=== PATIENT | male | born 1960 | race African-American/Black ===

== ENCOUNTER 2023-03-24 16:52 | Inpatient (IN) ==
[2023-03-24 18:50] LABS: Hematocrit 37.5 % (38-53); Hemoglobin 12.7 g/dL (13.2-16.3); Mean Corpuscular Hemoglobin 28.8 pg (27-33); Mean Corpuscular Hgb Conc 33.8 g/dL (31-36); Mean Corpuscular Volume 85.2 fL (80-97); Mean Platelet Volume 6.7 fL (7.5-11.2); Platelet Count 500 10^3/uL (150-450); White Blood Count 24.6 10^3/uL (3.6-10.2)
[2023-03-24 19:07] LABS: Albumin 2.5 g/dL (3.2-5.2); Albumin/Globulin Ratio 0.5 (1-3); C Reactive Protein 155.47 mg/L (<8.01); Creatinine, Serum 0.94 mg/dL (0.67-1.17); Globulin 4.9 g/dL (2-4); Total Bilirubin 1.3 mg/dL (0.2-1.0); Total Protein 7.4 g/dL (6.4-8.9); eGFR CKD-EPI 90.5 (>60)
[2023-03-24] MEDS: Vancomycin 1,000 MG in NS 0.9% 250 ml 250 ML IVPB ONE (19:12)
[2023-03-24 19:31] LABS: RBC Morphology Normal (Normal)
[2023-03-24 19:32] LABS: ABS Basophils 0.1 10^3/uL (0.0-0.1); ABS Lymphocytes 0.7 10^3/uL (1.0-4.8); ABS Monocytes 0.9 10^3/uL (0.0-1.1); ABS Neutrophils 22.9 10^3/uL (1.5-7.6); ABS Nucleated RBC 0.12 10^3/ul; Eosinophil % 0.2 %; Lymphocyte % 2.8 %; Nucleated Red Blood Cells % 0.5 %/100WBC (0.0-0.8)
[2023-03-24] MEDS ORDERED: Polyethylene Glycol 3350 17 GM PACKET PO PRN (20:43)
[2023-03-24] MEDS ORDERED: Senna TAB 8.6 mg TAB PO PRN (20:43)
[2023-03-24] MEDS ORDERED: Ondansetron 4 mg VIAL 2 MG/ML 2 ml VIAL IV PRN (20:43)
[2023-03-24 21:14] LABS: Urine Appearance Turbid; Urine Bilirubin Negative (Negative); Urine Blood 2+ (Negative); Urine Color Yellow; Urine Glucose Negative (Negative); Urine Ketones Negative (Negative); Urine Nitrite Negative (Negative); Urine Protein 2+(100 mg/dL) (Negative); Urine Urobilinogen Positive (Negative)
[2023-03-24 21:20] LABS: Urine Bacteria Absent (Absent); Urine Red Blood Cell 3+(>10/hpf) (Absent); Urine White Blood Cell 3+(>20/hpf) (Absent)
[2023-03-24 21:22] LABS: Direct Bilirubin 0.5 mg/dL (0.03-0.18); Indirect Bilirubin 0.8 mg/dL (0.3-1.0)
[2023-03-24] MEDS ORDERED: Vancomycin per Pharmacy 1 EA NOTE FOLLOW UP SCH (23:00)
[2023-03-24] MEDS: Lactated Ringers 1000 ml BAG 1,000 ML IV ONE (23:02)
[2023-03-24] MEDS: Cefepime 2 GM in Dextrose 2 GM/50 ML BAG IV SCH (23:05)
[2023-03-24] MEDS: Enoxaparin 40 MG/0.4 ML SYR SUBCUT SCH (23:07)
[2023-03-24] MEDS: Potassium Chlor 20 meq TAB.ER PO ONE (23:59)
[2023-03-25] MEDS: Lactated Ringers 1000 ml BAG 1,000 ML IV ONE (01:25)
[2023-03-25] MEDS: KCL 20 MEQ/100 ML IVPREMIX 20 MEQ/100 ML BAG IV SCH ×2 (01:26→11:26)
[2023-03-25] MEDS: Ammonium Lactate 12% 1 APPLIC TUBE TOPICAL SCH (03:48)
[2023-03-25 05:50] LABS: Hematocrit 37.6 % (38-53); Hemoglobin 12.5 g/dL (13.2-16.3); Mean Corpuscular Hemoglobin 28.3 pg (27-33); Mean Corpuscular Hgb Conc 33.3 g/dL (31-36); Mean Platelet Volume 6.6 fL (7.5-11.2); Platelet Count 510 10^3/uL (150-450); Red Blood Count 4.43 10^6/uL (4.06-5.63); Red Cell Distribution Width 14.3 % (12-17); White Blood Count 22.8 10^3/uL (3.6-10.2)
[2023-03-25 05:51] LABS: ABS Basophils 0.1 10^3/uL (0.0-0.1); ABS Eosinophils 0.1 10^3/uL (0.0-0.5); ABS Monocytes 0.7 10^3/uL (0.0-1.1); ABS Neutrophils 20.8 10^3/uL (1.5-7.6); ABS Nucleated RBC 0.04 10^3/ul; Eosinophil % 0.5 %; Lymphocyte % 4.6 %; Nucleated Red Blood Cells % 0.2 %/100WBC (0.0-0.8)
[2023-03-25] MEDS: Vancomycin 1000 MG in NS 0.9% 250 ML IVPB SCH ×2 (05:59→23:38)
[2023-03-25 06:07] LABS: Calcium 7.8 mg/dL (8.6-10.3); Creatinine, Serum 0.98 mg/dL (0.67-1.17); Potassium 3.2 mmol/L (3.5-5.0); eGFR CKD-EPI 86.1 (>60)
[2023-03-25] MEDS: Iohexol 350 (CONTRAST) 500 ML MDV IV ONE (07:23)
[2023-03-25] MEDS: Lactated Ringers 1000 ml BAG 1,000 ML IV SCH ×2 (16:35→18:27)
[2023-03-25] MEDS: Enoxaparin 40 MG/0.4 ML SYR SUBCUT ONE (16:36)
[2023-03-25] MEDS: Cefepime 2 GM in Dextrose 2 GM/50 ML BAG IV SCH (22:56)
[2023-03-26 06:30] LABS: ABS Basophils 0.1 10^3/uL (0.0-0.1); ABS Eosinophils 0.1 10^3/uL (0.0-0.5); ABS Lymphocytes 1.2 10^3/uL (1.0-4.8); ABS Monocytes 0.7 10^3/uL (0.0-1.1); ABS Neutrophils 15.9 10^3/uL (1.5-7.6); Eosinophil % 0.8 %; Hematocrit 35.2 % (38-53); Hemoglobin 11.8 g/dL (13.2-16.3); Lymphocyte % 6.7 %; Mean Corpuscular Hemoglobin 28.3 pg (27-33); Mean Corpuscular Hgb Conc 33.5 g/dL (31-36); Mean Corpuscular Volume 84.3 fL (80-97); Mean Platelet Volume 6.7 fL (7.5-11.2); Platelet Count 468 10^3/uL (150-450); Red Blood Count 4.17 10^6/uL (4.06-5.63); Red Cell Distribution Width 14.4 % (12-17); White Blood Count 18.1 10^3/uL (3.6-10.2)
[2023-03-26 07:50] LABS: Calcium 7.6 mg/dL (8.6-10.3); Creatinine, Serum 0.85 mg/dL (0.67-1.17); Magnesium 1.8 mg/dL (1.9-2.7); Phosphorus 2.1 mg/dL (2.5-5.0); Potassium 3.5 mmol/L (3.5-5.0)
[2023-03-26] MEDS ORDERED: Midazolam 2 mg/2 ml VIAL 1 mg/ml 2 ml VIAL (2 mg) ONE (11:59)
[2023-03-26] MEDS ORDERED: Lidocaine 2% PF 5 ML VIAL ONE (11:59)
[2023-03-26] MEDS ORDERED: Propofol 10 MG/ML 20 ML BTL ONE (11:59)
[2023-03-26] MEDS ORDERED: fentaNYL 250 mcg/5 ml 50 MCG/ML 5 ml VIAL (250 MCG) ONE (11:59)
[2023-03-26] MEDS ORDERED: Vancomycin Trough Check NOTE FOLLOW UP ONE (12:30)
[2023-03-26] MEDS ORDERED: Rocuronium 50 mg VIAL 10 mg/ml 5 ml VIAL (50 mg) ONE (12:43)
[2023-03-26] MEDS ORDERED: Lidocaine 2% (CARDIAC or IV) 20 MG/ML 5 ML SYRINGE (100 MG) ONE (12:47)
[2023-03-26] MEDS ORDERED: Bupivacaine 0.5% SDV PF 30ML VIAL ONE (12:47)
[2023-03-26] MEDS ORDERED: Acetaminophen IV 1 GM/100ML 1,000 MG/100 ML BAG IV ONE (13:52)
[2023-03-26] MEDS ORDERED: Sugammadex 500 MG/5 ML 5 ml VIAL IV PUSH ONE (14:01)
[2023-03-26] MEDS: Buffered Lidocaine 1% SYRIN 1 ml INTRADERM ONE (16:05)
[2023-03-26] MEDS: Cefepime 2 GM in Dextrose 2 GM/50 ML BAG IV SCH (16:31)
[2023-03-26] MEDS: Enoxaparin 40 MG/0.4 ML SYR SUBCUT SCH (16:32)
[2023-03-26 17:00] LABS: Creatinine, Serum 0.83 mg/dL (0.67-1.17); eGFR CKD-EPI 97.7 (>60)
[2023-03-26 17:19] LABS: Vancomycin Trough 10.1 mcg/mL
[2023-03-26] MEDS: Vancomycin 1,250 MG in NS 0.9% 250 ml 250 ML IVPB SCH (22:01)
[2023-03-27 06:08] LABS: ABS Basophils 0.1 10^3/uL (0.0-0.1); ABS Eosinophils 0.1 10^3/uL (0.0-0.5); ABS Lymphocytes 1.1 10^3/uL (1.0-4.8); ABS Monocytes 0.8 10^3/uL (0.0-1.1); ABS Neutrophils 13.5 10^3/uL (1.5-7.6); Eosinophil % 0.8 %; Hematocrit 33.8 % (38-53); Hemoglobin 11.4 g/dL (13.2-16.3); Lymphocyte % 7.3 %; Mean Corpuscular Hemoglobin 28.5 pg (27-33); Mean Corpuscular Hgb Conc 33.6 g/dL (31-36); Mean Corpuscular Volume 84.9 fL (80-97); Mean Platelet Volume 6.7 fL (7.5-11.2); Platelet Count 459 10^3/uL (150-450); Red Blood Count 3.98 10^6/uL (4.06-5.63); Red Cell Distribution Width 14.4 % (12-17); White Blood Count 15.6 10^3/uL (3.6-10.2)
[2023-03-27 06:26] LABS: Calcium 7.3 mg/dL (8.6-10.3); Creatinine, Serum 0.97 mg/dL (0.67-1.17); Magnesium 1.7 mg/dL (1.9-2.7); Potassium 3.4 mmol/L (3.5-5.0); eGFR CKD-EPI 87.2 (>60)
[2023-03-27] MEDS ORDERED: Potassium Chloride IV 40 MEQ in Lactated Ringers 1000 ml BAG 1,000 ML IVPB SCH (08:00)
[2023-03-27] MEDS: Magnesium Sulf 4 GM/100 ML IV 4,000 MG/100 ML BAG IVPB ONE (10:35)
[2023-03-27] MEDS: Potassium Chloride IV 40 MEQ in Lactated Ringers 1000 ml BAG 1,000 ML IVPB SCH (11:34)
[2023-03-27] MEDS: Lactated Ringers 1000 ml BAG 500 ML IV ONE (15:06)
[2023-03-27 15:21] LABS: INR 1.27 (0.83-1.13)
[2023-03-28] MEDS ORDERED: Senna TAB 8.6 mg TAB PO PRN (07:19)
[2023-03-28] MEDS: Vancomycin Trough Check NOTE FOLLOW UP ONE (07:32)
[2023-03-28] MEDS: Senna TAB 8.6 mg TAB PO SCH (21:25)
[2023-03-29 09:44] LABS: ABS Basophils 0.1 10^3/uL (0.0-0.1); ABS Eosinophils 0.2 10^3/uL (0.0-0.5); ABS Lymphocytes 1.1 10^3/uL (1.0-4.8); ABS Monocytes 0.9 10^3/uL (0.0-1.1); ABS Neutrophils 10.9 10^3/uL (1.5-7.6); ABS Nucleated RBC 0.01 10^3/ul; Eosinophil % 1.3 %; Hematocrit 33.1 % (38-53); Hemoglobin 11.3 g/dL (13.2-16.3); Lymphocyte % 8.6 %; Mean Corpuscular Hemoglobin 29.1 pg (27-33); Mean Corpuscular Hgb Conc 34.2 g/dL (31-36); Mean Platelet Volume 6.3 fL (7.5-11.2); Nucleated Red Blood Cells % 0.1 %/100WBC (0.0-0.8); Platelet Count 480 10^3/uL (150-450); Red Cell Distribution Width 14.5 % (12-17); White Blood Count 13.2 10^3/uL (3.6-10.2)
[2023-03-29 09:59] LABS: Calcium 7.9 mg/dL (8.6-10.3); Creatinine, Serum 0.82 mg/dL (0.67-1.17); Potassium 3.4 mmol/L (3.5-5.0); eGFR CKD-EPI 98.1 (>60)
[2023-03-29] MEDS: Potassium Chlor 20 meq TAB.ER PO ONE (10:55)
[2023-03-30 06:19] LABS: Hematocrit 29.4 % (38-53); Hemoglobin 10.1 g/dL (13.2-16.3); Mean Corpuscular Hemoglobin 28.9 pg (27-33); Mean Corpuscular Hgb Conc 34.2 g/dL (31-36); Mean Corpuscular Volume 84.4 fL (80-97); Mean Platelet Volume 6.3 fL (7.5-11.2); Platelet Count 447 10^3/uL (150-450); Red Blood Count 3.48 10^6/uL (4.06-5.63); Red Cell Distribution Width 14.4 % (12-17); White Blood Count 10.5 10^3/uL (3.6-10.2)
[2023-03-30 06:35] LABS: Calcium 7.6 mg/dL (8.6-10.3); Creatinine, Serum 0.85 mg/dL (0.67-1.17); Magnesium 1.9 mg/dL (1.9-2.7); Potassium 3.5 mmol/L (3.5-5.0); eGFR CKD-EPI 96.4 (>60)
[2023-03-30] MEDS: Potassium Chlor 20 meq TAB.ER PO ONE (10:32)
[2023-03-30] MEDS: Vancomycin Trough Check NOTE FOLLOW UP ONE (10:35)
[2023-03-30] MEDS: Magnesium Sulfate IV 1GM/100ML 1 GM/100 ML BAG IV ONE (10:36)
[2023-03-30] MEDS: Vancomycin 1000 MG in NS 0.9% 250 ML IVPB SCH (11:43)
[2023-03-30] MEDS: Potassium Chloride LIQUID 20 MEQ/15 ML LIQUID PO ONE (11:50)
[2023-03-30] MEDS: cefTRIAXone 2 gm/50 mL D5W 2 GM/50 ML BAG IV SCH (14:40)
[2023-03-31 06:10] LABS: Hematocrit 31.9 % (38-53); Hemoglobin 10.7 g/dL (13.2-16.3); Mean Corpuscular Hemoglobin 28.5 pg (27-33); Mean Corpuscular Hgb Conc 33.7 g/dL (31-36); Mean Corpuscular Volume 84.6 fL (80-97); Mean Platelet Volume 6.4 fL (7.5-11.2); Platelet Count 475 10^3/uL (150-450); Red Blood Count 3.77 10^6/uL (4.06-5.63); Red Cell Distribution Width 14.6 % (12-17); White Blood Count 9.9 10^3/uL (3.6-10.2)
[2023-03-31 06:27] LABS: Calcium 7.8 mg/dL (8.6-10.3); Creatinine, Serum 0.85 mg/dL (0.67-1.17); Potassium 3.5 mmol/L (3.5-5.0); eGFR CKD-EPI 96.4 (>60)
[2023-03-31] MEDS: KCL 20 MEQ/100 ML IVPREMIX 20 MEQ/100 ML BAG IV SCH (09:07)
[2023-03-31 12:17] LABS: Creatinine, Serum 0.85 mg/dL (0.67-1.17); eGFR CKD-EPI 96.4 (>60)
[2023-03-31 12:30] LABS: Vancomycin Trough 16.8 mcg/mL
[2023-03-31] MEDS: Vancomycin Trough Check NOTE FOLLOW UP ONE (12:41)
[2023-03-31] MEDS: Amoxicillin/Clavul 500/125 TAB (Augmentin 500 mg tab) PO SCH (13:25)
[2023-03-31 14:04] LABS: Osmolality Serum 305 mOsm/kg (275-295)
[2023-04-01 10:03] LABS: Hemoglobin 11.3 g/dL (13.2-16.3); Mean Corpuscular Hemoglobin 28.2 pg (27-33); Mean Corpuscular Hgb Conc 33.3 g/dL (31-36); Mean Corpuscular Volume 84.7 fL (80-97); Mean Platelet Volume 6.3 fL (7.5-11.2); Platelet Count 480 10^3/uL (150-450); Red Blood Count 4.02 10^6/uL (4.06-5.63); Red Cell Distribution Width 14.6 % (12-17); White Blood Count 11.9 10^3/uL (3.6-10.2)
[2023-04-01 10:56] LABS: Creatinine, Serum 0.86 mg/dL (0.67-1.17); Magnesium 1.9 mg/dL (1.9-2.7); Phosphorus 2.7 mg/dL (2.5-5.0); Potassium 4.1 mmol/L (3.5-5.0); eGFR CKD-EPI 96.1 (>60)
[2023-04-01] MEDS ORDERED: Lorazepam PYXIS KEY PRN (11:13)
[2023-04-01] MEDS: LORazepam 2 mg VIAL 1 ml IV PUSH ONE (11:30)
[2023-04-01 18:59] LABS: Urine Appearance Cloudy; Urine Bilirubin Negative (Negative); Urine Blood 2+ (Negative); Urine Color Yellow; Urine Glucose Negative (Negative); Urine Ketones Negative (Negative); Urine Nitrite Negative (Negative); Urine Protein 1+(30 mg/dL) (Negative); Urine Specific Gravity 1.013 (1.002-1.030); Urine Urobilinogen Negative (Negative)
[2023-04-01 19:13] LABS: Urine Bacteria Absent (Absent); Urine Red Blood Cell 3+(>10/hpf) (Absent); Urine Squamous Epithelial Cell Present (Absent); Urine White Blood Cell 3+(>20/hpf) (Absent)
[2023-04-03 06:43] LABS: ABS Basophils 0.1 10^3/uL (0.0-0.1); ABS Eosinophils 0.3 10^3/uL (0.0-0.5); ABS Lymphocytes 1.3 10^3/uL (1.0-4.8); ABS Monocytes 0.8 10^3/uL (0.0-1.1); ABS Neutrophils 5.7 10^3/uL (1.5-7.6); Eosinophil % 3.6 %; Hematocrit 31.2 % (38-53); Hemoglobin 10.6 g/dL (13.2-16.3); Lymphocyte % 15.6 %; Mean Corpuscular Hemoglobin 28.9 pg (27-33); Mean Corpuscular Hgb Conc 34.1 g/dL (31-36); Mean Corpuscular Volume 84.7 fL (80-97); Mean Platelet Volume 6.2 fL (7.5-11.2); Platelet Count 480 10^3/uL (150-450); Red Blood Count 3.68 10^6/uL (4.06-5.63); Red Cell Distribution Width 14.5 % (12-17); White Blood Count 8.1 10^3/uL (3.6-10.2)
[2023-04-03 06:50] LABS: Calcium 7.6 mg/dL (8.6-10.3); Creatinine, Serum 0.79 mg/dL (0.67-1.17); Magnesium 1.9 mg/dL (1.9-2.7); Potassium 3.8 mmol/L (3.5-5.0); eGFR CKD-EPI 98.6 (>60)
[2023-04-03] MEDS ORDERED: LORazepam 2 mg VIAL 1 ml IV PUSH PRN (08:41)
[2023-04-03] MEDS ORDERED: Lorazepam PYXIS KEY PRN (08:41)
[2023-04-03 10:33] VITALS: BP 111/54
[2023-04-03 11:37] LABS: Creatinine, Serum 0.8 mg/dL (0.67-1.17); Vancomycin Trough 22.5 mcg/mL; eGFR CKD-EPI 98.2 (>60)
[2023-04-03] MEDS: Vancomycin Trough Check NOTE FOLLOW UP ONE (11:48)
[2023-04-03 17:05] LABS: C Reactive Protein 116.89 mg/L (<8.01)
[2023-04-03] MEDS ORDERED: Vancomycin Random Level NOTE FOLLOW UP ONE (17:30)
[2023-04-03] MEDS ORDERED: Vancomycin 1,250 MG in NS 0.9% 250 ml 250 ML IVPB SCH (18:00)
[2023-04-05] MEDS ORDERED: Vancomycin Trough Check NOTE FOLLOW UP ONE (05:30)
== END 2023-04-03 14:40 | DRG 464 ==
LOC: ED 16:52 → EDHOLD 20:43 → SUATTDRO 20:43 → MED 03-25 13:42
PROVIDERS: ADMIT Internal Medicine; ATTEND Student in an Organized Health Care Education/Training Program

== ENCOUNTER 2023-09-24 17:02 | Inpatient (IN) ==
[2023-09-24] MEDS ORDERED: Dextrose 50% Syringe 50 ml 25 GM/50 ML SYRINGE ONE (17:13)
[2023-09-24] MEDS: Cefepime 2 GM in Dextrose 2 GM/50 ML BAG IV ONE (17:42)
[2023-09-24] MEDS: Acetaminophen IV 1 GM/100ML 1,000 MG/100 ML BAG IV ONE (17:42)
[2023-09-24] MEDS: Dextrose 50% Syringe 50 ml 25 GM/50 ML SYRINGE IV PUSH ONE (17:42)
[2023-09-24] MEDS: Lactated Ringers 1000 ml BAG 1,000 ML IV ONE ×2 (17:43→19:28)
[2023-09-24 17:44] LABS: ABS Lymphocytes 0.3 10^3/uL (1.0-4.8); ABS Monocytes 0.2 10^3/uL (0.0-1.1); ABS Neutrophils 9.6 10^3/uL (1.5-7.6); ABS Nucleated RBC 0.01 10^3/ul; Eosinophil % 0.3 %; Hematocrit 42.1 % (38-53); Hemoglobin 13.9 g/dL (13.2-16.3); Lymphocyte % 2.5 %; Mean Corpuscular Hemoglobin 28.3 pg (27-33); Mean Corpuscular Hgb Conc 33.1 g/dL (31-36); Mean Corpuscular Volume 85.5 fL (80-97); Mean Platelet Volume 6.9 fL (7.5-11.2); Nucleated Red Blood Cells % 0.1 %/100WBC (0.0-0.8); Platelet Count 307 10^3/uL (150-450); Red Blood Count 4.93 10^6/uL (4.06-5.63); White Blood Count 10.1 10^3/uL (3.6-10.2)
[2023-09-24 17:59] LABS: Activated Partial Thrombo Time 33.3 seconds (26.0-38.0); INR 1.1 (0.83-1.13)
[2023-09-24 18:19] LABS: Albumin 3.8 g/dL (3.2-5.2); Albumin/Globulin Ratio 1.1 (1-3); C Reactive Protein 21.13 mg/L (<8.01); Calcium 9.4 mg/dL (8.6-10.3); Creatinine, Serum 1.11 mg/dL (0.67-1.17); Globulin 3.4 g/dL (2-4); Potassium 3.4 mmol/L (3.5-5.0); Total Bilirubin 1.5 mg/dL (0.2-1.0); Total Protein 7.2 g/dL (6.4-8.9); eGFR CKD-EPI 73.7 (>60)
[2023-09-24] MEDS: Vancomycin 1,250 MG in NS 0.9% 250 ml 250 ML IVPB ONE (18:36)
[2023-09-24 18:56] LABS: Urine Appearance Extra Turbid; Urine Bilirubin Negative (Negative); Urine Blood 1+ (Negative); Urine Glucose 3+ (>=300 mg/dL) (Negative); Urine Ketones Negative (Negative); Urine Nitrite Negative (Negative); Urine Protein 1+ (>=30 mg/dL) (Negative); Urine Specific Gravity 1.017 (1.002-1.030); Urine Urobilinogen Negative (Negative); Urine pH 8.5 (5.0-8.0)
[2023-09-24 18:57] LABS: Urine Bacteria Absent /HPF (Absent); Urine Red Blood Cell Absent /HPF (0-Trace); Urine White Blood Cell Absent /HPF (0-Trace)
[2023-09-24 19:17] LABS: High Sensitivity Troponin 1 Hr 4 pg/mL (<20)
[2023-09-24 19:19] LABS: Urine Color Yellow
[2023-09-24] MEDS: NS 0.9% 1000 ml BAG 1,000 ML IV SCH (19:41)
[2023-09-25] MEDS: Acetaminophen IV 1 GM/100ML 1,000 MG/100 ML BAG IV PRN (00:43)
[2023-09-25] MEDS ORDERED: Vancomycin per Pharmacy 1 EA NOTE FOLLOW UP SCH ×2 (00:45→12:00)
[2023-09-25] MEDS: Lactated Ringers 1000 ml BAG 1,000 ML IV ONE (01:03)
[2023-09-25] MEDS: Acetaminophen IV 1 GM/100ML 1,000 MG/100 ML BAG IV ONE (07:06)
[2023-09-25] MEDS: Iohexol 300 (CONTRAST) 10 ML SDV IV ONE (10:31)
[2023-09-25] MEDS: Iohexol 350 (CONTRAST) 500 ML MDV IV ONE (10:32)
[2023-09-25] MEDS: cefTRIAXone 1 gm/50 mL D5W 1 GM/50 ML BAG IV SCH (10:56)
[2023-09-25] MEDS: Vancomycin 1,500 MG in NS 0.9% 250 ml 250 ML IVPB ONE (13:46)
[2023-09-26] MEDS: Vancomycin 1,250 MG in NS 0.9% 250 ml 250 ML IVPB SCH (01:52)
[2023-09-26 06:34] LABS: Hematocrit 40.8 % (38-53); Hemoglobin 14.1 g/dL (13.2-16.3); Mean Corpuscular Hgb Conc 34.5 g/dL (31-36); Mean Corpuscular Volume 84.1 fL (80-97); Mean Platelet Volume 7.3 fL (7.5-11.2); Platelet Count 287 10^3/uL (150-450); Red Blood Count 4.86 10^6/uL (4.06-5.63); Red Cell Distribution Width 15.4 % (12-17); White Blood Count 6.1 10^3/uL (3.6-10.2)
[2023-09-26 06:58] LABS: Calcium 8.6 mg/dL (8.6-10.3); Creatinine, Serum 0.86 mg/dL (0.67-1.17); Magnesium 1.9 mg/dL (1.9-2.7); Potassium 3.4 mmol/L (3.5-5.0); eGFR CKD-EPI 96.1 (>60)
[2023-09-26] MEDS: cefTRIAXone 1 gm/50 mL D5W 1 GM/50 ML BAG IV ONE (13:32)
[2023-09-27] MEDS: KCL 10 MEQ/50 ML IVPREMIX 10 MEQ/50 ML BAG IV ONE (00:33)
[2023-09-27 06:02] LABS: ABS Basophils 0.1 10^3/uL (0.0-0.1); ABS Eosinophils 0.3 10^3/uL (0.0-0.5); ABS Lymphocytes 1.4 10^3/uL (1.0-4.8); ABS Monocytes 0.9 10^3/uL (0.0-1.1); ABS Neutrophils 2.8 10^3/uL (1.5-7.6); Hematocrit 41.1 % (38-53); Lymphocyte % 26.4 %; Mean Corpuscular Hemoglobin 28.8 pg (27-33); Mean Corpuscular Volume 84.6 fL (80-97); Nucleated Red Blood Cells % 0.1 %/100WBC (0.0-0.8); Platelet Count 308 10^3/uL (150-450); Red Blood Count 4.86 10^6/uL (4.06-5.63); Red Cell Distribution Width 15.2 % (12-17); White Blood Count 5.4 10^3/uL (3.6-10.2)
[2023-09-27 06:32] LABS: Albumin 3.2 g/dL (3.2-5.2); Calcium 8.9 mg/dL (8.6-10.3); Creatinine, Serum 0.81 mg/dL (0.67-1.17); Globulin 3.3 g/dL (2-4); Magnesium 1.9 mg/dL (1.9-2.7); Potassium 3.7 mmol/L (3.5-5.0); Total Bilirubin 0.5 mg/dL (0.2-1.0); Total Protein 6.5 g/dL (6.4-8.9); eGFR CKD-EPI 97.8 (>60)
[2023-09-27] MEDS: cefTRIAXone 2 gm/50 mL D5W 2 GM/50 ML BAG IV SCH (10:17)
[2023-09-27] MEDS: Vancomycin Trough Check NOTE FOLLOW UP ONE (14:38)
[2023-09-27] MEDS ORDERED: Polyethylene Glycol 3350 17 GM PACKET PO PRN (14:56)
[2023-09-27] MEDS: Ammonium Lactate 12% 1 APPLIC TUBE TOPICAL SCH (20:29)
[2023-09-27] MEDS: Enoxaparin 40 MG/0.4 ML SYR SUBCUT SCH (20:30)
[2023-09-28 06:24] LABS: ABS Eosinophils 0.3 10^3/uL (0.0-0.5); ABS Lymphocytes 1.7 10^3/uL (1.0-4.8); ABS Monocytes 0.6 10^3/uL (0.0-1.1); ABS Neutrophils 2.3 10^3/uL (1.5-7.6); ABS Nucleated RBC 0.01 10^3/ul; Eosinophil % 6.1 %; Hematocrit 40.4 % (38-53); Lymphocyte % 33.5 %; Mean Corpuscular Hemoglobin 29.1 pg (27-33); Mean Corpuscular Hgb Conc 34.7 g/dL (31-36); Mean Platelet Volume 7.3 fL (7.5-11.2); Nucleated Red Blood Cells % 0.1 %/100WBC (0.0-0.8); Platelet Count 347 10^3/uL (150-450); Red Blood Count 4.81 10^6/uL (4.06-5.63); Red Cell Distribution Width 15.3 % (12-17); White Blood Count 4.9 10^3/uL (3.6-10.2)
[2023-09-28 06:28] LABS: Calcium 8.9 mg/dL (8.6-10.3); Creatinine, Serum 0.79 mg/dL (0.67-1.17); Magnesium 1.9 mg/dL (1.9-2.7); Potassium 3.8 mmol/L (3.5-5.0); eGFR CKD-EPI 98.6 (>60)
[2023-09-28] MEDS: Vancomycin 1,250 MG in NS 0.9% 250 ml 250 ML IVPB SCH (20:08)
[2023-09-29 05:57] LABS: ABS Eosinophils 0.3 10^3/uL (0.0-0.5); ABS Lymphocytes 1.6 10^3/uL (1.0-4.8); ABS Monocytes 0.8 10^3/uL (0.0-1.1); ABS Neutrophils 3.1 10^3/uL (1.5-7.6); Eosinophil % 5.7 %; Hematocrit 41.7 % (38-53); Hemoglobin 14.2 g/dL (13.2-16.3); Lymphocyte % 27.3 %; Mean Corpuscular Hemoglobin 28.5 pg (27-33); Mean Corpuscular Volume 83.8 fL (80-97); Mean Platelet Volume 6.9 fL (7.5-11.2); Nucleated Red Blood Cells % 0.1 %/100WBC (0.0-0.8); Platelet Count 390 10^3/uL (150-450); Red Blood Count 4.97 10^6/uL (4.06-5.63); Red Cell Distribution Width 15.3 % (12-17); White Blood Count 5.8 10^3/uL (3.6-10.2)
[2023-09-29] MEDS ORDERED: Vancomycin Trough Check NOTE FOLLOW UP ONE (06:00)
[2023-09-29 06:22] LABS: Calcium 9.3 mg/dL (8.6-10.3); Creatinine, Serum 0.82 mg/dL (0.67-1.17); Potassium 3.9 mmol/L (3.5-5.0); eGFR CKD-EPI 97.5 (>60)
[2023-09-29] MEDS: cefTRIAXone 1 gm/50 mL D5W 1 GM/50 ML BAG IV SCH (09:50)
[2023-09-30 07:13] LABS: Creatinine, Serum 0.86 mg/dL (0.67-1.17); eGFR CKD-EPI 96.1 (>60)
[2023-09-30] MEDS: Sulfamethox/Trimethoprim DS TAB 800/160 mg PO SCH (13:50)
[2023-09-30 14:16] VITALS: BP 109/68
== END 2023-09-30 17:30 | disposition home or self-care (01) | DRG 872 ==
LOC: EDHOLD 17:02 → ED 17:02 → SUATTDRO 18:49 → MEDTELE 22:43 → SUATTDRO 09-26 15:25
PROVIDERS: ADMIT Internal Medicine; ATTEND Student in an Organized Health Care Education/Training Program